=== PATIENT | male | born 1955 | race Caucasian/White ===

== ENCOUNTER 2018-05-20 19:49 | Emergency (ER) | payer OTHER ==
[2018-05-20 20:13] VITALS: BP 160/78; PULSE 81; TEMP 98.2; BMI 28.8
--- NOTE | 2018-05-20 20:13 | PDOC ---
History of Present Illness - General History Source: Patient Exam Limitations: No Limitations - History of Present Illness Initial Comments: 05/20/18 20:36 The patient is a 62 year old male, with a significant PMH of HTN and HLD who presents to the emergency department with pain to his left lower extremity. Patient states that in March he injured his left heel while in a pool, and has been wearing a foot insert since. Patient reports that today while going up the steps to get to the bus he heard a "snap" on his left leg. Patient notes that he has been walking differently since March secondary to the pain. The patient denies chest pain, shortness of breath, headache and dizziness. Denies fever, chills, nausea, vomit, diarrhea and constipation. Denies dysuria, frequency, urgency and hematuria. Allergies: NKA Past surgical history: None reported. Social history: No reported alcoghol, drug or cigarette use. PCP: Dr. La <Marjorie Leiva - Last Filed: 05/20/18 21:22> <Jose Maria Cam - Last Filed: 05/20/18 23:27> - General Chief Complaint: Injury Stated Complaint: LT LOWER LEG PAIN Time Seen by Provider: 05/20/18 20:00 Past History <Marjorie Leiva - Last Filed: 05/20/18 21:22> - Past Medical History COPD: No HTN: Yes Hypercholesterolemia: Yes - Suicide/Smoking/Psychosocial Hx Smoking History: Current every day smoker Number of Cigarettes Smoked Daily: 10 Information on smoking cessation initiated: Yes 'Breaking Loose' booklet given: 05/20/18 <Jose Maria Cam - Last Filed: 05/20/18 23:27> - Past Medical History Allergies/Adverse Reactions: Allergies Allergy/AdvReac Type Severity Reaction Status Date / Time No Known Allergies Allergy Unverified 05/20/18 19:51 Home Medications: Ambulatory Orders Amlodipine Besylate 10 mg PO DAILY 05/20/18 Lisinopril 20 mg PO DAILY 05/20/18 Lovastatin 20 mg PO DAILY 05/20/18 Omeprazole 20 mg PO DAILY 05/20/18 Review of Systems - Review of Systems Able to Perform ROS?: Yes Comments:: 05/20/18 20:35 ROS: A complete review of 10 out of 10 review of systems is taken and is negative apart from what is previously mentioned below and in the HPI. <Marjorie Leiva - Last Filed: 05/20/18 21:22> *Physical Exam - Vital Signs Last Vital Signs Temp Pulse Resp BP Pulse Ox 98.2 F 81 14 160/78 98 05/20/18 19:50 05/20/18 19:50 05/20/18 19:50 05/20/18 19:50 05/20/18 19:50 - Physical Exam Comments: 05/20/18 20:35 Vitals: Triage vital signs reviewed General Appearance: No acute distress, well nourished, well developed Cardiac: Regular rate and rhythm, no murmurs, no rubs, no gallops Lungs: Clear to auscultation bilateral, good air movement bilaterally Extremities: (+) Left heel tenderness to palpation. (+) Left lateral tenderness to palpation superior to the lateral malleolus. No obvious deformity. neurovascularly intact. good strength. no cyanosis, clubbing, or edema Skin: Warm and dry, no rashes or lesions, no rash, no petechiae Neuro: AOX3; Cranial Nerves 2-12 grossly intact, Strength intact to all extremities, Sensation intact to all extremities. Psych: Normal mood, normal affect <Marjorie Leiva - Last Filed: 05/20/18 21:22> - Vital Signs Last Vital Signs Temp Pulse Resp BP Pulse Ox 98.2 F 81 14 160/78 98 05/20/18 19:50 05/20/18 19:50 05/20/18 19:50 05/20/18 19:50 05/20/18 19:50 <Jose Maria Cam - Last Filed: 05/20/18 23:27> ED Treatment Course - RADIOLOGY Radiology Studies Ordered: Category Date Time Status ANKLE & FOOT-LEFT* [RAD] Stat Radiology 05/20/18 20:10 Ordered <Jose Maria Cam - Last Filed: 05/20/18 23:27> Medical Decision Making - Medical Decision Making 05/20/18 20:40 62 years old presents with pain to left heel and mid ankle laterally after missing a step going up a bus. [place] a pop. Achilles intact. No obvious deformity neurovascularly intact good strength we'll x-ray and reassess Reevaluation x-ray demonstrates no acute fracture dislocation there is some swelling under the heel We'll recommend nonweightbearing Aircast crutches and ortho follow-up. Findings, the need for follow-up and strict return instructions discussed with patient. <Jose Maria Cam - Last Filed: 05/20/18 23:27> *DC/Admit/Observation/Transfer <Marjorie Leiva - Last Filed: 05/20/18 21:22> - Discharge Dispostion Decision to Admit order: No <Jose Maria Cam - Last Filed: 05/20/18 23:27> Diagnosis at time of Disposition: Ankle sprain Qualifiers: Encounter type: initial encounter Involved ligament of ankle: unspecified ligament Laterality: left Qualified Code(s): S93.402A - Sprain of unspecified ligament of left ankle, initial encounter - Discharge Dispostion Disposition: HOME Condition at time of disposition: Stable - Referrals Referrals: Alejandro La MD [Primary Care Provider] - Stu Kothari MD [Staff Physician] - - Patient Instructions Printed Discharge Instructions: Ankle Sprain Additional Instructions: Keep foot elevated as much as possible ice 20 minutes on 20 minutes off. No weight on foot. Use air cast and crutches at all times ambulating. On Wednesday follow-up with Dr. Kothari orthopedics. Take [id number] Motrin as directed on package as needed for pain. Return to ED for any severe worsening symptoms or for any concerns. - Post Discharge Activity
== END 2018-05-20 20:56 | disposition home or self-care (01) ==
LOC: FER 19:49
DX: S93.402A Sprain of unspecified ligament of left ankle, initial encounter (principal); X58.XXXA Exposure to other specified factors, initial encounter; Y93.89 Activity, other specified; Y92.9 Unspecified place or not applicable; F17.210 Nicotine dependence, cigarettes, uncomplicated; I10 Essential (primary) hypertension; E78.00 Pure hypercholesterolemia, unspecified
CPT/HCPCS: 73610-TC-LT-FY; 73630-TC-LT; 99282-25